=== PATIENT | female | born 1965 | race African-American/Black ===

== ENCOUNTER 2018-03-05 12:25 | Emergency (ER) | payer BC ==
[~2018-03-05] VITALS: Ht 160 cm; Wt 63.6 kg
[2018-03-05] MEDS ORDERED: ASPIRIN 81MG TABLET PO ONE (13:45)
[2018-03-05 13:53] LABS: BASOPHILS % 0.6 % (0.0-2.0); EOSINOPHILS % 1.5 % (0.0-5.0); HEMOGLOBIN. 13.8 g/dL (12.0-16.0); MEAN CORPUSCULAR HEMOGLOBIN 30.7 pg (28.0-32.0); MEAN CORPUSCULAR VOLUME 89.3 fL (81.0-99.0); MEAN PLATELET VOLUME 8.5 fl (7.4-10.4); MONOCYTES % 6.8 % (2.0-8.0); NEUTROPHILS % 46.1 % (40.0-76.0); PLATELET 313 x1000/uL (130-400); RED BLOOD CELL COUNT 4.49 mill/uL (4.2-5.4)
[2018-03-05 13:58] LABS: CHLORIDE 97 mEq/L (98-107)
[2018-03-05 16:04] VITALS: BP 164/60
== END 2018-03-05 17:03 | disposition home or self-care (01) ==
LOC: ER 12:25
DX: R00.2 Palpitations (principal); R07.89 Other chest pain; I10 Essential (primary) hypertension; Z98.890 Other specified postprocedural states
CPT/HCPCS: 36415; 71045; 83880; 84484; 93005; 99284

== ENCOUNTER 2018-04-02 01:34 | Inpatient (IN) | payer BC ==
[~2018-04-02] VITALS: Ht 152.4 cm; Wt 64.4 kg
[2018-04-02] MEDS ORDERED: NITROGLYCERIN OINT 1GM/INCH UDPKT TD ONE (03:45)
[2018-04-02 04:06] LABS: BASOPHILS % 0.4 % (0.0-2.0); EOSINOPHILS % 1.1 % (0.0-5.0); HEMATOCRIT. 37.4 % (36.0-48.0); HEMOGLOBIN. 12.7 g/dL (12.0-16.0); LYMPHOCYTES % 33.6 % (20.0-50.0); MEAN CORPUSCULAR HEMOGLOBIN 30.4 pg (28.0-32.0); MEAN CORPUSCULAR VOLUME 89.8 fL (81.0-99.0); MEAN PLATELET VOLUME 7.6 fl (7.4-10.4); MONOCYTES % 6.5 % (2.0-8.0); NEUTROPHILS % 58.4 % (40.0-76.0); PLATELET 294 x1000/uL (130-400); RED BLOOD CELL COUNT 4.17 mill/uL (4.2-5.4); RED CELL DISTRIBUTION WIDTH 12.2 % (11.6-14.6)
[2018-04-02 04:12] LABS: CHLORIDE 100 mEq/L (98-107)
[2018-04-02 12:00] VITALS: BP 137/60
[2018-04-02 12:30] VITALS: BP 137/60
[2018-04-02] MEDS ORDERED: LOSA1TAB37 MT (13:39)
[2018-04-02] MEDS ORDERED: DYR5 MT (13:39)
[2018-04-02] MEDS ORDERED: ATEN-42 MT (13:39)
[2018-04-02] MEDS ORDERED: LOSA100T14 PO (13:42)
[2018-04-02] MEDS ORDERED: TRIA1TAB92 MT (14:13)
[2018-04-02] MEDS ORDERED: POTASSIUM CHLORIDE 20MEQ TABLET SR PO NR (15:00)
[2018-04-02] MEDS: ATENOLOL 25MG TABLET PO SCH (15:30)
[2018-04-02 16:00] VITALS: BP 123/60
[2018-04-02] MEDS: ENOXAPARIN 40MG/0.4ML SYR SUBCUT SCH (17:25)
[2018-04-02] MEDS: LOSARTAN POTASSIUM 50 MG TABLET PO SCH (17:26)
[2018-04-02] MEDS ORDERED: REGADENOSON 0.4 MG/5 ML IV NR (19:30)
[2018-04-02 20:00] VITALS: BP 111/49
[2018-04-02 23:57] LABS: CREATINE KINASE 101 IU/L (26-192); CREATINE KINASE MB FRACTION < 1.0 ng/mL (0.5-3.6)
[2018-04-03] VITALS: BP 103/47
[2018-04-03 04:00] VITALS: BP 113/44
[2018-04-03] MEDS ORDERED: PANTOPRAZOLE 40MG DR TABLET PO SCH (06:45)
[2018-04-03 08:00] VITALS: BP 145/69
[2018-04-03] MEDS: LOSARTAN POTASSIUM 50 MG TABLET PO SCH ×2 (09:00→17:00)
[2018-04-03] MEDS: ATENOLOL 25MG TABLET PO SCH (09:00)
[2018-04-03] MEDS ORDERED: TRIAMTERENE/HYDROCHLOROTHIAZIDE 37.5/25MG CAPSULE PO SCH (09:00)
[2018-04-03 10:10] LABS: CREATINE KINASE 87 IU/L (26-192)
[2018-04-03 10:12] LABS: CREATINE KINASE MB FRACTION < 1.0 ng/mL (0.5-3.6)
[2018-04-03] MEDS ORDERED: CLONIDINE 0.1MG TABLET PO PRN (10:15)
[2018-04-03] MEDS ORDERED: ASPIRIN 81MG EC TABLET PO SCH (11:00)
[2018-04-03 12:00] VITALS: BP 107/69
[2018-04-03] MEDS ORDERED: REGADENOSON 0.4 MG/5 ML IV ONE (13:08)
[2018-04-03 16:00] VITALS: BP 110/47
[2018-04-03] MEDS: ENOXAPARIN 40MG/0.4ML SYR SUBCUT SCH (17:25)
[2018-04-03] MEDS ORDERED: POTASSIUM CHLORIDE 20MEQ TABLET SR PO NR (17:45)
[2018-04-03 18:10] VITALS: BP 110/47
== END 2018-04-03 19:40 | disposition home or self-care (01) | DRG 392 ==
LOC: ER 01:34 → EDBEDREQ 06:05 → EDBEDREQTM 06:05 → CANRESERV 10:21 → ENRESERV 10:21 → 5WST 11:40
PROVIDERS: ADMIT Internal Medicine Pulmonary Disease; ATTEND Internal Medicine Pulmonary Disease
DX: K21.9 Gastro-esophageal reflux disease without esophagitis (principal); I10 Essential (primary) hypertension; E87.6 Hypokalemia; Z79.82 Long term (current) use of aspirin; Z79.899 Other long term (current) drug therapy; Z87.891 Personal history of nicotine dependence; Z98.891 History of uterine scar from previous surgery
CPT/HCPCS: 36415; 71045; 78452; 82550; 82553; 83880; 84484; 93005; 93017; 93306; 93970; 99285; A9500; J1650; J2785

== ENCOUNTER 2022-10-20 23:23 | Emergency (ER) | payer BC ==
[~2022-10-20] VITALS: Ht 152.4 cm; Wt 73.4 kg
[~2022-10-20 23:23] MED LIST: ATEN-42 MT; LOSA100T33 PO; TRIA1TAB92 MT
[2022-10-20 23:25] VITALS: BP 175/64; TEMP 98.2; O2SAT 100
[2022-10-20 23:27] VITALS: PULSE 88; RESP 16
[2022-10-21 01:04] LABS: BASOPHILS % 0.3 % (0.0-2.0); EOSINOPHILS % 0.8 % (0.0-5.0); HEMATOCRIT. 38.3 % (36.0-48.0); HEMOGLOBIN. 12.8 g/dL (12.0-16.0); LYMPHOCYTES % 29.8 % (20.0-50.0); MEAN CORPUSCULAR HEMOGLOBIN 29.6 pg (28.0-32.0); MEAN CORPUSCULAR HGB CONC 33.4 g/dL (31.0-37.0); MEAN CORPUSCULAR VOLUME 88.6 fL (81.0-99.0); MEAN PLATELET VOLUME 7.5 fl (7.4-10.4); MONOCYTES % 4.5 % (2.0-8.0); NEUTROPHILS % 64.6 % (40.0-76.0); PLATELET 326 x1000/uL (130-400); RED BLOOD CELL COUNT 4.33 mill/uL (4.2-5.4); RED CELL DISTRIBUTION WIDTH 12.8 % (11.6-14.6); WHITE BLOOD COUNT 8.3 x1000/uL (4.5-11.0)
[2022-10-21 01:14] LABS: CHLORIDE 102 mEq/L (98-107); INDEX HEMOLYSI 1 (1-3); INDEX ICTERIC 1 (1-4); INDEX LIPEMIC 1 (1-3); POTASSIUM 3.4 mEq/L (3.5-5.1); SODIUM 136 mEq/L (136-145)
[2022-10-21 01:36] LABS: ALANINE AMINOTRANSFERASE 33 IU/L (13-61); ALBUMIN 4.2 g/dL (3.4-5.0); ASPARTATE AMINOTRANSFERASE 28 IU/L (15-37); BILIRUBIN TOTAL 0.6 mg/dL (0.1-1.0); CALCIUM 9.6 mg/dL (8.5-10.1); CARBON DIOXIDE 29 mEq/L (21-32); CREATININE 0.6 mg/dL (0.6-1.3); GLUCOSE 121 mg/dL (70-105); PROTEIN TOTAL 7.7 g/dL (6.0-8.3); TROPONIN I HIGH SENSITIVITY 7 ng/L (<54); UREA NITROGEN BLOOD 25 mg/dL (7-21)
== END 2022-10-21 03:26 | disposition home or self-care (01) ==
LOC: ER 23:23
DX: I10 Essential (primary) hypertension (principal); E78.00 Pure hypercholesterolemia, unspecified; Z98.890 Other specified postprocedural states
CPT/HCPCS: 36415; 71045; 80053; 84484; 85025; 93005; 99285

== ENCOUNTER 2023-05-09 22:28 | Emergency (ER) | payer BC ==
[~2023-05-09] VITALS: Ht 157.5 cm; Wt 71.0 kg
[2023-05-09 23:24] VITALS: RESP 16; O2SAT 99
[2023-05-10 00:16] VITALS: BP 149/64; PULSE 63; TEMP 98
== END 2023-05-10 00:21 | disposition home or self-care (01) ==
LOC: ER 22:28
DX: I10 Essential (primary) hypertension (principal); E78.00 Pure hypercholesterolemia, unspecified; Z98.890 Other specified postprocedural states
CPT/HCPCS: 99281